=== PATIENT | female | born 1970 | race Caucasian/White ===

== ENCOUNTER 2022-11-05 00:21 | Emergency (ER) | payer MEDICAID, OTHER ==
[~2022-11-05] VITALS: Ht 157.5 cm; Wt 61.0 kg
[2022-11-05 00:36] VITALS: BP 138/74
[2022-11-05] MEDS ORDERED: LIDOCAINE HCL/PF 1% 10 MG/ML 5ML VIAL INFIL ONE (02:00)
[2022-11-05] MEDS ORDERED: CEPH500C2 MT (02:47)
[2022-11-05] MEDS ORDERED: SULF1TAB48 MT (02:47)
[2022-11-05] MEDS ORDERED: ACETAMINOPHEN 325MG TABLET PO ONE (03:00)
== END 2022-11-05 03:15 | disposition home or self-care (01) ==
LOC: ER 00:21
DX: L02.411 Cutaneous abscess of right axilla (principal)
CPT/HCPCS: 10060; 99283; J3490; Z7610

== ENCOUNTER 2023-10-04 00:48 | Emergency (ER) | payer MEDICAID, OTHER ==
[~2023-10-04] VITALS: Ht 162.6 cm; Wt 68.0 kg
[~2023-10-04 00:48] MED LIST: CEPH500C2 MT; SULF1TAB48 MT
[2023-10-04 01:02] VITALS: O2SAT 99
[2023-10-04] MEDS ORDERED: NAPR-679 MT (01:59)
[2023-10-04] MEDS ORDERED: CYCL5TAB MT (01:59)
[2023-10-04] MEDS ORDERED: ACET-2708 MT (01:59)
[2023-10-04] MEDS ORDERED: LIDO700A15 TP (01:59)
[2023-10-04] MEDS: KETOROLAC 30MG/ML VIAL IM ONE (02:24)
[2023-10-04] MEDS: ACETAMINOPHEN 325MG TABLET PO ONE (02:28)
[2023-10-04 02:29] VITALS: BP 135/84; PULSE 90; RESP 19; TEMP 98.2
== END 2023-10-04 02:33 | disposition home or self-care (01) ==
LOC: ER 01:39
DX: S20.219A Contusion of unspecified front wall of thorax, initial encounter (principal); S39.012A Strain of muscle, fascia and tendon of lower back, initial encounter; S16.1XXA Strain of muscle, fascia and tendon at neck level, initial encounter; F41.9 Anxiety disorder, unspecified; F31.9 Bipolar disorder, unspecified; V49.59XA Passenger injured in collision with other motor vehicles in traffic accident, initial encounter; Y93.89 Activity, other specified; Y92.89 Other specified places as the place of occurrence of the external cause; Y99.8 Other external cause status
CPT/HCPCS: 96372; 99283; J1885; Z7610

== ENCOUNTER 2024-01-03 11:09 | Emergency (ER) | payer OTHER ==
[~2024-01-03] VITALS: Ht 157.5 cm; Wt 59.0 kg
[~2024-01-03 11:09] MED LIST changes: +ACET-2708 MT; +CYCL5TAB MT; +LIDO700A15 TP; +NAPR-679 MT
[2024-01-03 11:24] VITALS: O2SAT 96
[2024-01-03] MEDS: KETOROLAC 15MG/ML VIAL IM ONE (11:45)
[2024-01-03 12:57] LABS: BASOPHILS % 0.8 % (0.0-2.0); HEMATOCRIT. 41.2 % (36.0-48.0); HEMOGLOBIN. 13.3 g/dL (12.0-16.0); LYMPHOCYTES % 30.5 % (20.0-50.0); MEAN CORPUSCULAR HEMOGLOBIN 27.5 pg (28.0-32.0); MEAN CORPUSCULAR HGB CONC 32.4 g/dL (31.0-37.0); MONOCYTES % 8.8 % (2.0-8.0); NEUTROPHILS % 56.9 % (40.0-76.0); PLATELET 290 x1000/uL (130-400); RED BLOOD CELL COUNT 4.85 mill/uL (4.2-5.4); RED CELL DISTRIBUTION WIDTH 14.7 % (11.6-14.6); WHITE BLOOD COUNT 7.6 x1000/uL (4.5-11.0)
[2024-01-03 13:09] LABS: CHLORIDE 101 mEq/L (98-107); POTASSIUM 4.1 mEq/L (3.5-5.1); SODIUM 136 mEq/L (136-145)
[2024-01-03 13:10] LABS: CARBON DIOXIDE 27 mEq/L (21-32)
[2024-01-03 13:11] LABS: CALCIUM 8.9 mg/dL (8.7-10.4)
[2024-01-03 13:15] LABS: CREATININE 0.8 mg/dL (0.6-1.0); GLUCOSE 94 mg/dL (70-105); UREA NITROGEN BLOOD 10 mg/dL (9-23)
[2024-01-03] MEDS ORDERED: IBUP-2029 MT (15:56)
[2024-01-03 16:33] VITALS: BP 134/87; PULSE 89; RESP 16; TEMP 98.3
[2024-01-03] MEDS ORDERED: IOHEXOL-300 100 ML BOTTLE ONE (17:33)
== END 2024-01-03 16:33 | disposition home or self-care (01) ==
LOC: ER 11:09
DX: S22.42XA Multiple fractures of ribs, left side, initial encounter for closed fracture (principal); F41.9 Anxiety disorder, unspecified; F31.9 Bipolar disorder, unspecified; X58.XXXA Exposure to other specified factors, initial encounter; Y93.89 Activity, other specified; Y92.89 Other specified places as the place of occurrence of the external cause; Y99.8 Other external cause status
CPT/HCPCS: 99285; 74177; 71045; 80048; 81025; 85025; 36415; 71101; 96372; Q9967; J1885